=== PATIENT | female | born 1990 | race Two or more races ===

== ENCOUNTER 2023-08-10 14:29 | Observation (INO) | payer MEDICAID ==
[~2023-08-10] VITALS: Ht 157.5 cm; Wt 77.1 kg
[2023-08-10] MEDS: BETAMETHASONE ACET (30mg/5ml) 5ml Vial 6mg/ml IM ONE (15:02)
[2023-08-10] MEDS ORDERED: PREN-96 PO (16:01)
[2023-08-10 16:11] LABS: Urine Bacteria MANY /hpf (None Seen); Urine Blood Negative /uL (Negative); Urine Clarity HAZY (Clear); Urine Color Yellow (Yellow); Urine Mucus FEW (None Seen); Urine Protein, UAD TRACE (Negative); Urine Specific Gravity 1.018 (1.001-1.035); Urine WBC 9 /hpf (0 - 5); Urine pH 6.5 (5.0-8.0)
[2023-08-10] MEDS ORDERED: NITR-87 PO (16:49)
== END 2023-08-10 15:43 | disposition home or self-care (01) ==
LOC: LDRP 14:29 → UNDOADMOB 14:29 → LDRP 14:35
PROVIDERS: ADMIT Obstetrics & Gynecology; ATTEND Obstetrics & Gynecology
DX: O60.03 Preterm labor without delivery, third trimester (principal); O23.43 Unspecified infection of urinary tract in pregnancy, third trimester; Z91.040 Latex allergy status; Z3A.33 33 weeks gestation of pregnancy
CPT/HCPCS: 59025; 81001; 81002; 87086; 96372; G0378; 87088; 87186

== ENCOUNTER 2023-08-11 02:30 | Observation (INO) | payer MEDICAID ==
[~2023-08-11 02:30] MED LIST: NITR-87 PO; PREN-96 PO
== END 2023-08-11 03:32 | disposition home or self-care (01) ==
LOC: LDRP 02:30
PROVIDERS: ADMIT Obstetrics & Gynecology; ATTEND Obstetrics & Gynecology
DX: O23.43 Unspecified infection of urinary tract in pregnancy, third trimester (principal); O60.03 Preterm labor without delivery, third trimester; Z91.040 Latex allergy status; Z3A.33 33 weeks gestation of pregnancy
CPT/HCPCS: 59025; 81002; 94760; G0378

== ENCOUNTER 2023-08-17 08:26 | Observation (INO) | payer MEDICAID | END 2023-08-17 09:30 | disposition home or self-care (01) | LOC: LDRP 08:26 → UNDOADMOB 08:26 → LDRP 08:40 | PROVIDERS: ADMIT Obstetrics & Gynecology; ATTEND Obstetrics & Gynecology | DX: O60.03 Preterm labor without delivery, third trimester (principal); Z3A.34 34 weeks gestation of pregnancy; Z91.040 Latex allergy status | CPT/HCPCS: 59025; 81002; 94760; G0378 ==

== ENCOUNTER 2023-09-18 08:10 | Observation (INO) | payer MEDICAID ==
[2023-09-19] MEDS ORDERED: IBUP-1456 PO (07:07)
[2023-09-19] MEDS ORDERED: HYDR-4902 PO (07:07)
[2023-09-19] MEDS ORDERED: DOCU-94 PO (07:07)
== END 2023-09-18 09:52 | disposition home or self-care (01) ==
LOC: LDRP 08:10
PROVIDERS: ADMIT Obstetrics & Gynecology; ATTEND Obstetrics & Gynecology
DX: O75.9 Complication of labor and delivery, unspecified (principal); Z3A.38 38 weeks gestation of pregnancy; Z91.040 Latex allergy status
CPT/HCPCS: 59025; 81002; 94760; G0378

== ENCOUNTER 2023-09-19 05:04 | Inpatient (IN) | payer MEDICAID ==
[2023-09-18 10:02] LABS: Basophils # (auto) 0 10 ^3/uL (0-0.2); Basophils % (auto) 0.4 % (0.0-2.0); Eosinophils # (auto) 0 10 ^3/uL (0-0.8); Eosinophils % (auto) 0.2 % (0.0-7.0); Hematocrit 33.6 % (36.0-46.0); Hemoglobin 11.2 g/dL (12.2-16.2); Lymphocytes # (auto) 1.7 10 ^3/uL (0.4-5.4); Lymphocytes % (auto) 24.2 % (10.0-50.0); Mean Corpuscular Hemoglobin 30.1 pg (28.0-32.0); Mean Corpuscular Hgb Conc. 33.3 g/dL (32.0-36.0); Mean Corpuscular Volume 90.6 fL (80.0-100.0); Monocytes # (auto) 0.4 10 ^3/uL (0-1.3); Monocytes % (auto) 5.5 % (0.0-12.0); Neutrophils # (auto) 4.8 10 ^3/uL (1.6-8.6); Neutrophils % (auto) 69.7 % (37.0-80.0); Nucleated Red Blood Cells % 0.1 %; Red Blood Cells 3.71 10^6/uL (4.0-5.20); Red Cell Distribution Width 13.7 % (11.8-14.3); White Blood Cell 6.9 10^3/uL (4.4-10.8)
[2023-09-18 10:08] LABS: INR 0.94 (0.9-1.15); Partial Thromboplastin Time 24.2 SEC (24.5-34.5)
[2023-09-18 10:13] LABS: Alkaline Phosphatase 147 U/L (46-116); Aspartate Aminotransferase 21 U/L (13-40); Bilirubin, Total 0.5 mg/dL (0.2-1.0); Calcium 8.7 mg/dL (8.5-10.1); Chloride 106 mmol/L (98-107); Glucose 72 mg/dL (74-106); Sodium 137 mmol/L (136-145)
[2023-09-18 10:34] LABS: Alanine Aminotransferase < 9 U/L (7-40)
[2023-09-18 10:35] LABS: Albumin 3.5 g/dL (3.2-4.8); Anion Gap 8 (5-15); Carbon Dioxide 23 mmol/L (20-30)
[2023-09-18 10:36] LABS: BUN/Creatinine Ratio 12.9 (10.0-20.0); Blood Urea Nitrogen 8 mg/dL (9-23)
[2023-09-18 11:29] LABS: Urine Bacteria FEW /hpf (None Seen); Urine Blood Negative /uL (Negative); Urine Clarity Hazy (Clear); Urine Color Light-Yellow (Yellow); Urine Protein, UAD Negative (Negative); Urine Specific Gravity 1.014 (1.001-1.035); Urine Urobilinogen Normal (Negative); Urine WBC 5 /hpf (0 - 5)
[2023-09-18 11:38] LABS: Amphetamine Screen, Urine Neg (NEGATIVE); Barbiturate Scree,Urine Neg (NEGATIVE); Benzodiazephine Screen, Urine Neg (NEGATIVE); Cocaine Screen, Urine Neg (NEGATIVE); Opiate Scree,Urine Neg (NEGATIVE); Phencyclidine Screen, Urine Neg (NEGATIVE)
[2023-09-18 11:39] LABS: Cannabinoid Screen, Urine Neg (NEGATIVE)
[2023-09-19] VITALS (16 sets, daily range): BP systolic 95–115; BP diastolic 52–75; PULSE 62–85; RESP 16–18; TEMP 97.6–98.2; O2SAT 95–100
[~2023-09-19] VITALS: Ht 162.6 cm; Wt 62.1 kg
[2023-09-19] MEDS: LACTATED RINGER'S 1,000 ML IV ONE (06:23)
[2023-09-19] MEDS ORDERED: MORPHINE SULF PF 5 MG/10 ML VIAL ONE (06:58)
[2023-09-19] MEDS ORDERED: IBUP-1456 PO (07:07)
[2023-09-19] MEDS ORDERED: DOCU-94 PO (07:07)
[2023-09-19] MEDS ORDERED: HYDR-4902 PO (07:07)
[2023-09-19] MEDS ORDERED: ceFAZolin 1GM/50ML 50 ML IV SCH (07:15)
[2023-09-19] MEDS: GUM (CHEWING) 1 GUM CHEW CHEW ONE (07:15)
[2023-09-19] MEDS ORDERED: oxyTOCIN 10 UNIT/ML 10ML VIAL ONE (07:19)
[2023-09-19] MEDS ORDERED: ePHEDrine SULFATE 50 MG/ML AMP ONE (07:19)
[2023-09-19] MEDS ORDERED: PHENYLEPHRINE HCL 10 MG/ML VL IV ONE (07:20)
[2023-09-19] MEDS ORDERED: PHENYLEPHRINE HCL 10 MG/ML VL ONE (07:21)
[2023-09-19] MEDS ORDERED: KETOROLAC TROMETH 30 MG/ML 1ML VIAL IV PRN (08:30)
[2023-09-19] MEDS ORDERED: ONDANSETRON HCL 4 MG/2 ML VIAL IV PRN (08:30)
[2023-09-19] MEDS ORDERED: MEPERIDINE HCL (25 MG/ML) 1ML VIAL IV PRN (08:30)
[2023-09-19] MEDS ORDERED: DexAMETHasone SOD PHOS 10MG/1ML VIAL INJ IV PRN (08:30)
[2023-09-19] MEDS ORDERED: HYDROmorphone HCL 2 MG/ML VL/or syr IV PRN ×2 (08:30)
[2023-09-19] MEDS: NALBUPHINE HCL 10 MG/1ml INJECTION SUBCUT ONE (08:30)
[2023-09-19] MEDS ORDERED: NALOXONE HCL 0.4 MG/ML VIAL IV PRN (08:30)
[2023-09-19] MEDS: ceFAZolin 2 GM/D5W50ml 50 ML IV ONE (08:50)
[2023-09-19] MEDS: LACT. RINGERS/OXYTOCIN 20UNITS 1,000 ML IV ONE (09:04)
[2023-09-19] MEDS: ONDANSETRON HCL 4 MG/2 ML VIAL IV PRN (09:06)
[2023-09-19] MEDS: diphenhdrAMINE HCL 50 MG/1 ML VL IV PRN (09:06)
[2023-09-19] MEDS: LACTATED RINGER'S 1,000 ML IV SCH (09:16)
[2023-09-19] MEDS: ACETAMINOPHEN IV 1000 MG/100ML (10MG/ML) IV PRN ×2 (11:47→22:18)
[2023-09-19] MEDS: ceFAZolin 1GM/50ML 50 ML IV SCH (15:24)
[2023-09-19] MEDS: MORPHINE SULFATE 4 MG/ML SYR/VIAL IV PRN (20:01)
[2023-09-19 21:25] LABS: Basophils # (auto) 0 10 ^3/uL (0-0.2); Basophils % (auto) 0.4 % (0.0-2.0); Eosinophils # (auto) 0 10 ^3/uL (0-0.8); Eosinophils % (auto) 0.1 % (0.0-7.0); Hematocrit 34.2 % (36.0-46.0); Hemoglobin 11.2 g/dL (12.2-16.2); Lymphocytes # (auto) 1.5 10 ^3/uL (0.4-5.4); Mean Corpuscular Hemoglobin 29.8 pg (28.0-32.0); Mean Corpuscular Hgb Conc. 32.7 g/dL (32.0-36.0); Mean Corpuscular Volume 91.3 fL (80.0-100.0); Monocytes # (auto) 0.6 10 ^3/uL (0-1.3); Monocytes % (auto) 4.9 % (0.0-12.0); Neutrophils # (auto) 9.2 10 ^3/uL (1.6-8.6); Neutrophils % (auto) 81.6 % (37.0-80.0); Red Blood Cells 3.75 10^6/uL (4.0-5.20); Red Cell Distribution Width 13.7 % (11.8-14.3); White Blood Cell 11.3 10^3/uL (4.4-10.8)
[2023-09-20] VITALS (14 sets, daily range): BP systolic 91–120; BP diastolic 50–74; PULSE 64–88; RESP 16–20; TEMP 98–98.7; O2SAT 94–100
[2023-09-20] MEDS: ONDANSETRON HCL 4 MG/2 ML VIAL IV ONE (06:00)
[2023-09-20] MEDS ORDERED: BISACODYL 10 MG RECT SUPP PR PRN (07:00)
[2023-09-20] MEDS ORDERED: HYDROcodone-ACET 5/325MG TAB PO PRN (07:00)
[2023-09-20] MEDS: IBUPROFEN 800 MG TAB PO PRN (07:22)
[2023-09-20] MEDS: HYDROcodone-ACET 5/325MG TAB PO PRN (07:23)
[2023-09-20 08:30] LABS: Basophils # (auto) 0 10 ^3/uL (0-0.2); Basophils % (auto) 0.3 % (0.0-2.0); Eosinophils # (auto) 0 10 ^3/uL (0-0.8); Eosinophils % (auto) 0.1 % (0.0-7.0); Hematocrit 34.1 % (36.0-46.0); Hemoglobin 11.3 g/dL (12.2-16.2); Lymphocytes # (auto) 1.1 10 ^3/uL (0.4-5.4); Mean Corpuscular Hemoglobin 30.2 pg (28.0-32.0); Mean Corpuscular Hgb Conc. 33.2 g/dL (32.0-36.0); Mean Corpuscular Volume 90.7 fL (80.0-100.0); Monocytes # (auto) 0.5 10 ^3/uL (0-1.3); Monocytes % (auto) 5.7 % (0.0-12.0); Neutrophils # (auto) 7.7 10 ^3/uL (1.6-8.6); Neutrophils % (auto) 81.9 % (37.0-80.0); Red Blood Cells 3.76 10^6/uL (4.0-5.20); White Blood Cell 9.4 10^3/uL (4.4-10.8)
[2023-09-20] MEDS ORDERED: DOCUSATE SOD 100 MG CAP PO SCH ×3 (10:00→22:00)
[2023-09-20] MEDS ORDERED: DOCUSATE CALCIUM 240 MG CAP PO SCH ×2 (10:00→11:00)
[2023-09-20] MEDS: SIMETHICONE 80 MG CHEWABLE TABLET PO SCH (12:34)
[2023-09-20] MEDS: DOCUSATE SOD 100 MG CAP PO SCH (12:34)
[2023-09-20] MEDS: DOCUSATE CALCIUM 240 MG CAP PO SCH (12:38)
[2023-09-20 19:06] LABS: Chlamydia Trachomatis, NAA Negative (Negative); Neisseria gonorrhoeae, NAA Negative (Negative)
[2023-09-20] MEDS: KETOROLAC TROMETH 30 MG/ML 1ML VIAL IM PRN (22:41)
[2023-09-21 03:06] LABS: Rubella Antibodies, IgG 1.56 index (Immune >0.99)
[2023-09-21 03:30] VITALS: BP 92/58; PULSE 64; RESP 14; TEMP 98.1; O2SAT 98
[2023-09-21 05:07] LABS: RPR Non Reactive (Non Reactive)
[2023-09-21 07:00] VITALS: BP 98/58; PULSE 67; RESP 14; TEMP 98.4; O2SAT 98
[2023-09-21] MEDS ORDERED: DOCUSATE CALCIUM 240 MG CAP PO SCH (10:00)
[2023-09-21 11:00] VITALS: BP 102/63; PULSE 69; RESP 14; TEMP 97.9; O2SAT 100
== END 2023-09-21 14:40 | disposition home or self-care (01) | DRG 540 ==
LOC: UNDOADMIN 05:04 → LDRP 05:04
PROVIDERS: ADMIT Obstetrics & Gynecology; ATTEND Obstetrics & Gynecology
PROC: 10D00Z1 Extraction of Products of Conception, Low, Open Approach (ICD-10-PCS; principal; 2023-09-19 07:09)
DX: O34.211 Maternal care for low transverse scar from previous cesarean delivery (principal); Z37.0 Single live birth; Z3A.39 39 weeks gestation of pregnancy
CPT/HCPCS: 36415; 59025; 80053; 80307; 81001; 85025; 85610; 85730; 86592; 86703; 86762; 86803; 86850; 86900; 86901; 87340; 94760; 94762; 96360; 96361; 96365; 96374; 96375; G0378; J0131; J1885; J2405; J2590

== ENCOUNTER 2024-12-24 04:54 | Observation (INO) | payer MEDICAID ==
[~2024-12-24 04:54] MED LIST changes: +DOCU-94 PO; +HYDR-4902 PO; +IBUP-1456 PO; -NITR-87 PO
--- NOTE | 2024-12-24 07:10 | DVH ---
INDICATION: ABD PAIN/BACK PAIN TECHNIQUE: Multiple real-time sonographic images of the abdomen were obtained. COMPARISON: US ABDOMEN COMPLETE SONOGRAM on DOS: 08/22/23 FINDINGS: Liver is homogenous in echogenicity. The liver measures 14.3 cm. No intrahepatic biliary ductal dilatation is noted. The gallbladder wall measures 0.2 cm and is unremarkable. No gallstones or gallbladder sludge. No pericholecystic fluid or edema. The common duct measures 0.4 cm and is unremarkable. The right kidney measures 10.9 cm. Mild hydronephrosis. The left kidney measures 10.8 cm. No hydronep hrosis. The spleen measures 9.4 cm, within normal limits. The echogenicity is within normal limits. The pancreas is not well visualized due to obscuration from bowel gas. The visualized portions of the IVC and aorta are grossly unremarkable. IMPRESSION: Mild right hydronephrosis.
--- NOTE | 2024-12-24 07:12 | DVH ---
LIMITED OB ULTRASOUND > 14 WKS: HISTORY: ABD PAIN TECHNIQUE: Multiple real-time grayscale images of the gravid uterus with duplex Doppler color flow an d M-mode spectral analysis. TRANSDUCER: Transabdominal COMPARISON: US OBSTERICAL LIMITED on DOS: 08/22/23, US BIOPHYSICAL PROFILE on DOS: 08/09/23 FINDINGS /impression: heart rate 152 beats per minute JAMES 13.7 cm Cervix is closed and measures 3.5 cm Cephalic Presentation Anterior Placenta without previa or abruption. Possible nuchal cord x2.
[2024-12-24] MEDS: ONDANSETRON HCL 4 MG/2 ML VIAL IM ONE (07:31)
[2024-12-24 07:32] VITALS: BP 92/63; PULSE 82; RESP 18
[2024-12-24] MEDS: MORPHINE SULFATE 4 MG/ML SYR/VIAL IM ONE (07:32)
[2024-12-24] MEDS: LACTATED RINGER'S 1,000 ML IV ONE (07:34)
--- NOTE | 2024-12-24 07:36 | DVHDS2 ---
Physician Discharge Progress N Final Diagnosis: 31 WKS ABD PAIN Other Interventions Other Interventions NST REACTIVE REVIWEDJANO Condition on Discharge: Good Disposition: Home Discharge Instructions: Diet: Regular Activity: No Restrictions, As Tolerated Medications: NA Follow Up Care: Specialist: 3D Discharge Statement: "Patient was advised to return to the ER or call 911 if any headaches, dizziness, shortness of breath, chest pain, abdominal pain, bleeding, fevers, or worsening of medical condition. Patient was counseled about treatment plan, medications, possible side effects, patientverbalized understanding. All questions were answered to the best of my ability. This discharge took greater then 30 minutes in planning, reviewing documentation, counseling the patient, and discussing with other team members." Visit Coding OBGYN Date of Service: Dec 24, 2024 Billing Provider: VERONICA OCHOA DO MEDICAL SOCIAL CONSULTANT Common Visit Codes: [id number] INP/OBS CARE (HIGH) MEDICAL SOCIAL CONSULTANT Procedure Codes: 18460-54- NON-STRESS TEST VERONICA OCHOA DO Dec 24, 2024 07:36
[2024-12-24 08:17] LABS: Urine Protein, UAD 1+ (Negative)
== END 2024-12-24 10:22 | disposition home or self-care (01) ==
LOC: LDRP 04:54
PROVIDERS: ADMIT Obstetrics & Gynecology; ATTEND Obstetrics & Gynecology
DX: O26.893 Other specified pregnancy related conditions, third trimester (principal); R10.9 Unspecified abdominal pain; Z3A.31 31 weeks gestation of pregnancy; Z98.890 Other specified postprocedural states; Z79.899 Other long term (current) drug therapy
CPT/HCPCS: 59025; 76700; 76815; 81002; 81003; 87086; 96360; 96361; 96372; G0378; J2270; J2405

== ENCOUNTER 2025-01-19 10:55 | Observation (INO) | payer MEDICAID ==
--- NOTE | 2025-01-19 11:43 | DVH ---
BIOPHYSICAL PROFILE HISTORY: PTL TECHNIQUE: Multiple transabdominal real-time grayscale sonographic images through the gravid uterus of the fetus with duplex Doppler color flow and M-mode spectral analysis FINDINGS: BIOPHYSICAL PROFILE: breathing score: 2 movement score: 2 tone score: 2 Quantitative JAMES score: 2 (JAMES: 11 Cm.) Total score: 8 The cervix was not seen Single live fetus in cephalic presentation. heart rate 180 beats per minute. Grade II anterior placenta without previa or abruption Biophysical profile score 8/8 . IMPRESSION: Biophysical profile score: 8/8
[2025-01-19] MEDS ORDERED: CEPH250C PO (11:57)
--- NOTE | 2025-01-24 22:54 | DVHDS2 ---
Physician Discharge Progress N Final Diagnosis: hydronephrosis,back pain 34 wks Operations or Procedures: Operations or Procedures nst reactive reviwed,sono Condition on Discharge: Good Disposition: Home Discharge Instructions: Diet: Regular Activity: No Restrictions, As Tolerated Medications: na Follow Up Care: Specialist: 3d Discharge Statement: "Patient was advised to return to the ER or call 911 if any headaches, dizziness, shortness of breath, chest pain, abdominal pain, bleeding, fevers, or worsening of medical condition. Patient was counseled about treatment plan, medications, possible side effects, patientverbalized understanding. All questions were answered to the best of my ability. This discharge took greater then 30 minutes in planning, reviewing documentation, counseling the patient, and discussing with other team members." Discharge Care Plan Instructions S/S of dehydration Visit Coding OBGYN Date of Service: Jan 19, 2025 Billing Provider: VERONICA OCHOA DO OVERHAULER BUS TRUCK Common Visit Codes: 06752-[id number] INP/OBS CARE (HIGH) OVERHAULER BUS TRUCK Procedure Codes: 69484-51- NON-STRESS TEST VERONICA OCHOA DO Jan 24, 2025 22:54
== END 2025-01-19 12:05 | disposition home or self-care (01) ==
LOC: LDRP 10:55 → UNDOADMOB 10:55 → LDRP 11:08
PROVIDERS: ADMIT Obstetrics & Gynecology; ATTEND Obstetrics & Gynecology
DX: O99.891 Other specified diseases and conditions complicating pregnancy (principal); N13.30 Unspecified hydronephrosis; M54.9 Dorsalgia, unspecified; Z3A.34 34 weeks gestation of pregnancy; Z98.890 Other specified postprocedural states
CPT/HCPCS: 59025; 76819; 81002; G0378

== ENCOUNTER 2025-01-27 07:53 | Observation (INO) | payer MEDICAID ==
[~2025-01-27 07:53] MED LIST changes: +CEPH250C PO
--- NOTE | 2025-01-27 09:34 | DVH ---
CLINICAL HISTORY: Hydronephrosis COMPARISON: US BIOPHYSICAL PROFILE on DOS: 01/19/25, US OBSTERICAL LIMITED on DOS: 12/24/24, US OBSTERIC AL LIMITED on DOS: 08/22/23 TECHNIQUE: biophysical profile was performed. Transabdominal sonographic images of the fetus we re obtained. FINDINGS: The fetus is in cephalic position. heart rate measures 129 BPM. Amniotic fluid index measures 8.7 cm. The placenta is anterior in position without evidence of previa or abruption visuali zed. Possible nuchal cord with the umbilical cord visualized at least partially wrapped around the fe elin neck. BPP profile is an overall score of 8/8, with 2/2 points for breathing, with at least one episode of breathing over a 30 second duration during a 30 minute observation, 2/2 points for m ovements, with 3 or more discrete body or limb movements, 2/2 points for tone, with one or more episodes of extremity extension with return to flexion, or opening and closing of hand, and 2/ 2 points for amniotic fluid, with at least 1 pocket of amniotic fluid that measures 2 cm in 2 perpend icular planes. IMPRESSION: 1. BPP score of 8/8. 2. Possible nuchal cord.
--- NOTE | 2025-01-28 09:26 | DVHDS2 ---
Physician Discharge Progress N Final Diagnosis: HYDRONEPHROSIS 36WKS Operations or Procedures: Operations or Procedures NST REACTIVE REVIWED,SONO Condition on Discharge: Good Disposition: Home Discharge Instructions: Diet: Regular Activity: No Restrictions, As Tolerated Medications: NA Follow Up Care: Specialist: 1W Discharge Statement: "Patient was advised to return to the ER or call 911 if any headaches, dizziness, shortness of breath, chest pain, abdominal pain, bleeding, fevers, or worsening of medical condition. Patient was counseled about treatment plan, medications, possible side effects, patientverbalized understanding. All questions were answered to the best of my ability. This discharge took greater then 30 minutes in planning, reviewing documentation, counseling the patient, and discussing with other team members." Visit Coding OBGYN Date of Service: Jan 27, 2025 Billing Provider: VERONICA OCHOA DO SYSTEMS PROGRAM MANAGER Common Visit Codes: 81013-FHPWNRM OBS CARE (HIGH) SYSTEMS PROGRAM MANAGER Procedure Codes: 57331-70- NON-STRESS TEST VERONICA OCHOA DO Jan 28, 2025 09:26
== END 2025-01-27 09:44 | disposition home or self-care (01) ==
LOC: LDRP 07:53
PROVIDERS: ADMIT Obstetrics & Gynecology; ATTEND Obstetrics & Gynecology
DX: O99.891 Other specified diseases and conditions complicating pregnancy (principal); N13.39 Other hydronephrosis; Z3A.36 36 weeks gestation of pregnancy; Z98.890 Other specified postprocedural states
CPT/HCPCS: 59025; 76819; 81002; 94760; G0378

== ENCOUNTER 2025-01-29 09:13 | Observation (INO) | payer MEDICAID ==
--- NOTE | 2025-01-29 10:26 | DVH ---
BIOPHYSICAL PROFILE HISTORY: low JAMES TECHNIQUE: Multiple transabdominal real-time grayscale sonographic images through the gravid uterus of the fetus with duplex Doppler color flow and M-mode spectral analysis FINDINGS: BIOPHYSICAL PROFILE: breathing score: 2 movement score: 2 tone score: 2 Quantitative JAMES score: 2 (JAMES: 10 Cm.) Total score: 8 The cervix was not seen Single live fetus in cephalic presentation. heart rate 116 beats per minute. Grade II anterior placenta without previa or abruption IMPRESSION: Biophysical profile score: 8/8
--- NOTE | 2025-01-30 05:51 | DVHDS2 ---
Discharge Summary Date of Admission Jan 29, 2025 at 09:13 Date of Discharge: Jan 29, 2025 Admitting Diagnosis Thirty-six weeks history of low JAMES and right hydro nephrosis. NST BPP performed no evidence of low JAMES reassuring heart tones NST reactive Wounds: None Brief Hx & Hospital Course: NST BPP performed reassuring Consults/Reason for consult None Operations or Procedures None Condition at Discharge: Good Final Diagnosis/Problems List 36+ week history of low JAMES and right ureteral hydronephrosis Discharge Disposition: Home Discharge Instruct/Medications Diet: Regular Activity: No Restrictions, As Tolerated Activity comment: Kick counts labor precautions Scheduled Cephalexin (Keflex Capsule), 2 CAP PO QID, (Reported) Docusate Sodium (Colace), 1 CAP PO BID Vit W/ Ferrous Fumara ( One Daily), 1 TAB PO DAILY, (Reported) Scheduled PRN Hydrocodone-Acetaminophen (Hydrocodone Bitartrate/AC 5-325 mg), 1 TAB PO Q6HPRN PRN Ibuprofen (Ibuprofen), 800 MG PO TID PRN Discharge Statement: "Patient was advised to return to the ER or call 911 if any headaches, dizziness, shortness of breath, chest pain, abdominal pain, bleeding, fevers, or worsening of medical condition. Patient was counseled about treatment plan, medications, possible side effects, patientverbalized understanding. All questions were answered to the best of my ability. This discharge took greater then 30 minutes in planning, reviewing documentation, counseling the patient, and discussing with other team members." ASSESSMENT ASSESSMENT Assessment Visit Coding OBGYN Date of Service: Jan 29, 2025 Billing Provider: PAZ IRENE DO RAILROAD WHEELS AND AXLE INSPECTOR Common Visit Codes: 37209-AQM/OBS SAME DATE (LOW), 82468-QFW/OBS SAME DATE (MOD), 54540-AUS/OBS SAME DATE (HIGH) RAILROAD WHEELS AND AXLE INSPECTOR Procedure Codes: 57522-92- NON-STRESS TEST PAZ IRENE DO Jan 30, 2025 05:51
== END 2025-01-29 10:45 | disposition home or self-care (01) ==
LOC: LDRP 09:13
PROVIDERS: ADMIT Obstetrics & Gynecology; ATTEND Obstetrics & Gynecology
DX: O42.913 Preterm premature rupture of membranes, unspecified as to length of time between rupture and onset of labor, third trimester (principal); O99.891 Other specified diseases and conditions complicating pregnancy; N13.30 Unspecified hydronephrosis; Z3A.36 36 weeks gestation of pregnancy; Z98.890 Other specified postprocedural states
CPT/HCPCS: 59025; 76819; 81002; G0378

== ENCOUNTER 2025-02-01 06:35 | Observation (INO) | payer MEDICAID ==
[~2025-02-01] VITALS: Ht 160 cm; Wt 59.9 kg
[2025-02-02 05:33] LABS: Vaginal Bacteria Many; Vaginal Clue Cells Rare; Vaginal Epithelial Cells Many; Vaginal Trichomonas Not Present
--- NOTE | 2025-02-02 05:35 | DVHDS2 ---
Physician Discharge Progress N Final Diagnosis: IUP 36w6d, pelvic pain BV Operations or Procedures: Operations or Procedures SUBJECTIVE Kate Woods is a 35 yo with IUP at 36w6d presenting for pelvic pain Patient states yesterday at 1030, she began feeling a sharp, continuous pain in her vagina. She did not have anyone to drive her at that time so she called an ambulance and they took her to [facility]. She states that they watched her for a couple hours, gave her tylenol, and sent her home. She has her discharge packet with her. Discharge packet shows d/c medications of monistat and metronidazole. When asked, patient states they also said something about bacteria. Denies feeling any contractions today, but states she felt some yesterday. Denies leaking fluid or vaginal bleeding. States positive movement. Denies dysuria or urinary frequency. Denies any vaginal itching or changes in discharge. PNC: good. with Dr Hargrove EDC: 02/24/25 Ob Hx: c/s x 3 Review of Systems: Neuro: No complaints Heart: No complaints Lungs: No complaints GI: No complaints : Denies dysuria, abnormal vaginal discharge, itching, or change in odor. States she has pelvic pain x 1 day as described above Skin: No complaints Extremities: No complaints OBJECTIVE VSS FHR: Baseline: 140 Variability: Moderate Accelerations: Present Decelerations: Absent Category: 1 UCs: none noted Neuro: A&O x4. No apparent distress. Affect appropriate Heart: Regular rate and rhythm Lungs: Clear bilaterally GI: Gravid. No tenderness : SSE discussed and performed with consent. Cervix closed. No bleeding noted in vagina or at os. Copious amounts of thin whitish vargas discharge noted with ad herence along vaginal wall Skin: Dry and intact. No rashes or lesions Extremities: Cap refill WNL. Wet [place]: positive WBC, rare clue cells noted ASSESSMENT 35 yo with IUP at 36w6d Not in labor Category 1 Tracing Vaginitis- Bacterial Vaginosis PLAN -Continue with appointments as scheduled. Next weekly NST/BPP on Monday 02/05 -Discussed vaginitis and ways to promote vaginal hygiene. Emphasized the importance of taking metronidazole as prescribed. Patient states she will pickling grader the prescription today, as she does have transportation available -Sent urine GC/CT. Lab send out. -Discussed term labor precautions and kick counts. Answered all patient questions and concerns. Patient verbalizes understanding. Other Interventions Other Interventions Wet [place] WBC- moderate RBC- few epithelial- many bacteria- many trich- not present yeast- none clue cells- rare Condition on Discharge: Good Disposition: Home Discharge Instructions: Diet: Regular Activity: No Restrictions, As Tolerated Medications: Metronidazole as previously prescribed by [facility] Follow Up Care: Specialist: follow-up with NST on Monday 02/05 Discharge Statement: "Patient was advised to return to the ER or call 911 if any headaches, dizziness, shortness of breath, chest pain, abdominal pain, bleeding, fevers, or worsening of medical condition. Patient was counseled about treatment plan, medications, possible side effects, patientverbalized understanding. All questions were answered to the best of my ability. This discharge took greater then 30 minutes in planning, reviewing documentation, counseling the patient, and discussing with other team members." Visit Coding OBGYN Date of Service: Feb 02, 2025 Billing Provider: SHANAE PETERS CNM RETAIL MANAGER IN TRAINING Common Visit Codes: 96063-[id number] INP/OBS CARE (HIGH) RETAIL MANAGER IN TRAINING Procedure Codes: 13618-09- NON-STRESS TEST SHANAE PETERS CNM Feb 02, 2025 05:35
== END 2025-02-02 05:57 | disposition home or self-care (01) ==
LOC: LDRP 02-02 04:24
PROVIDERS: ADMIT Obstetrics & Gynecology; ATTEND Obstetrics & Gynecology
DX: O26.893 Other specified pregnancy related conditions, third trimester (principal); R10.2 Pelvic and perineal pain; O23.593 Infection of other part of genital tract in pregnancy, third trimester; Z3A.36 36 weeks gestation of pregnancy; Z98.890 Other specified postprocedural states
CPT/HCPCS: 59025; 81002; 87210; 94760; G0378

== ENCOUNTER 2025-02-03 04:35 | Observation (INO) | payer MEDICAID ==
--- NOTE | 2025-02-05 15:07 | DVH ---
BIOPHYSICAL PROFILE HISTORY: LOW JAMES TECHNIQUE: Multiple real-time grayscale sonographic images through the gravid uterus of the fetus wi th duplex Doppler color flow. FINDINGS: BIOPHYSICAL PROFILE: breathing score: 2 movement score: 2 tone score: 2 Quantitative JAMES score: 2 Total score: 8 out of 8 Single live intrauterine . Cephalic lie. heart rate 138 beats per minute. Placenta anteriorly positioned. JAMES 9.8 cm. IMPRESSION: Biophysical profile score: 8 out of 8
--- NOTE | 2025-02-06 06:19 | DVHDS2 ---
Discharge Summary Date of Admission Feb 05, 2025 at 14:30 Date of Discharge: Feb 05, 2025 Admitting Diagnosis 37+ weeks here for evaluation NST performed reassuring heart tones Wounds: None Labs/Diagnostic Data: Laboratory Results Test 02/05/25 15:24 Brief Hx & Hospital Course: NST performed Consults/Reason for consult tones 37+ week Operations or Procedures None Condition at Discharge: Good Final Diagnosis/Problems List 37+ weeks reassuring heart tones discharge Discharge Disposition: Home Discharge Instruct/Medications Diet: Regular Activity: No Restrictions, As Tolerated Activity comment: Kick counts labor precautions Follow Up/Referral: As scheduled Medications: None Scheduled Cephalexin (Keflex Capsule), 2 CAP PO QID, (Reported) Docusate Sodium (Colace), 1 CAP PO BID Vit W/ Ferrous Fumara ( One Daily), 1 TAB PO DAILY, (Reported) Scheduled PRN Hydrocodone-Acetaminophen (Hydrocodone Bitartrate/AC 5-325 mg), 1 TAB PO Q6HPRN PRN Ibuprofen (Ibuprofen), 800 MG PO TID PRN Discharge Statement: "Patient was advised to return to the ER or call 911 if any headaches, dizziness, shortness of breath, chest pain, abdominal pain, bleeding, fevers, or worsening of medical condition. Patient was counseled about treatment plan, medications, possible side effects, patientverbalized understanding. All questions were answered to the best of my ability. This discharge took greater then 30 minutes in planning, reviewing documentation, counseling the patient, and discussing with other team members." ASSESSMENT ASSESSMENT Assessment Visit Coding OBGYN Date of Service: Feb 05, 2025 Billing Provider: PAZ IRENE DO OXYGEN PLANT OPERATOR Common Visit Codes: 39491-DAH/OBS SAME DATE (LOW), 07217-GIP/OBS SAME DATE (MOD), 96911-SOF/OBS SAME DATE (HIGH) OXYGEN PLANT OPERATOR Procedure Codes: 15449-77- NON-STRESS TEST PAZ IRENE DO Feb 06, 2025 06:18
[2025-02-07 06:07] LABS: Chlamydia Trachomatis, NAA Negative (Negative); Neisseria gonorrhoeae, NAA Negative (Negative)
== END 2025-02-05 15:57 | disposition home or self-care (01) ==
LOC: LDRP 02-05 14:13 → UNDOADMOB 02-05 14:13 → LDRP 02-05 14:30
PROVIDERS: ADMIT Obstetrics & Gynecology; ATTEND Obstetrics & Gynecology
DX: O23.03 Infections of kidney in pregnancy, third trimester (principal); Z3A.37 37 weeks gestation of pregnancy; Z98.890 Other specified postprocedural states
CPT/HCPCS: 59025; 76819; 81002; 87491; 87591; G0378

== ENCOUNTER 2025-02-12 14:06 | Observation (INO) | payer MEDICAID ==
--- NOTE | 2025-02-12 14:53 | DVH ---
BIOPHYSICAL PROFILE HISTORY: low james TECHNIQUE: Multiple transabdominal real-time grayscale sonographic images through the gravid uterus of the fetus with duplex Doppler color flow and M-mode spectral analysis FINDINGS: BIOPHYSICAL PROFILE: breathing score: 2 movement score: 2 tone score: 2 Quantitative JAMES score: 2 (JAMES: 11.7 Cm.) Total score: 8 The cervix not well visualized. Single live fetus in cephalic presentation. heart rate 126 beats per minute. Anterior placenta without previa or abruption IMPRESSION: Biophysical profile score: 8
[2025-02-14] MEDS ORDERED: IBUP-1456 PO (17:18)
== END 2025-02-12 15:12 | disposition home or self-care (01) ==
LOC: LDRP 14:06 → UNDOADMOB 14:06 → LDRP 14:11
PROVIDERS: ADMIT Obstetrics & Gynecology; ATTEND Obstetrics & Gynecology
DX: O42.92 Full-term premature rupture of membranes, unspecified as to length of time between rupture and onset of labor (principal); Z3A.38 38 weeks gestation of pregnancy; Z98.890 Other specified postprocedural states
CPT/HCPCS: 59025; 76819; 81002; 94760; G0378

== ENCOUNTER 2025-02-14 04:16 | Inpatient (IN) | payer MEDICAID ==
[2025-02-12 14:41] LABS: Hematocrit 33.3 % (36.0-46.0); Hemoglobin 11.4 g/dL (12.2-16.2); Mean Corpuscular Hemoglobin 30.9 pg (28.0-32.0); Mean Corpuscular Volume 89.9 fL (80.0-100.0); Nucleated Red Blood Cells % 0.1 %
[2025-02-12 14:52] LABS: Urine Protein, UAD Negative (Negative)
[2025-02-12 14:53] LABS: INR 0.95 (0.9-1.15); Partial Thromboplastin Time 26.1 SEC (24.5-34.5); Prothrombin Time 10.1 sec (9.3-11.8)
[2025-02-12 14:53] LABS: Amphetamine Screen, Urine Neg (NEGATIVE)
[2025-02-12 14:55] LABS: Barbiturate Scree,Urine Neg (NEGATIVE); Benzodiazephine Screen, Urine Neg (NEGATIVE); Cannabinoid Screen, Urine Neg (NEGATIVE); Cocaine Screen, Urine Neg (NEGATIVE); Opiate Scree,Urine Neg (NEGATIVE); Phencyclidine Screen, Urine Neg (NEGATIVE)
[2025-02-12 14:56] LABS: Alanine Aminotransferase 10 U/L (7-40); Anion Gap 13 (5-15); BUN/Creatinine Ratio 11.1 (10.0-20.0); Carbon Dioxide 21 mmol/L (20-31); Chloride 103 mmol/L (98-107); Sodium 137 mmol/L (136-145); Total Protein 6.1 g/dL (5.7-8.2)
[2025-02-12 14:57] LABS: Albumin 3.5 g/dL (3.2-4.8); Alkaline Phosphatase 162 U/L (46-116); Bilirubin, Total 0.3 mg/dL (0.2-1.0); Blood Urea Nitrogen 8 mg/dL (9-23); Calcium 8.2 mg/dL (8.7-10.4); Glucose 120 mg/dL (74-106); Potassium 3.5 mmol/L (3.5-5.1)
[~2025-02-14] VITALS: Ht 160 cm; Wt 57.6 kg
[2025-02-14] VITALS (19 sets, daily range): BP systolic 94–112; BP diastolic 48–67; PULSE 58–95; RESP 15–18; TEMP 97.6–97.8; O2SAT 97–100
[2025-02-14] MEDS: LACTATED RINGER'S 1,000 ML IV SCH (04:45)
--- NOTE | 2025-02-14 04:58 | DVHHP ---
ADMIT DATE: 02/14/2025 CHIEF COMPLAINT: Early labor, desires repeat section. HISTORY OF PRESENT ILLNESS: The patient is a 35-year-old 4, para 3 with EDC 02/24, estimated gestational age of 38 plus weeks, admitted for early labor. The patient had previous section x 3. She desires to have repeat section. Denies having any vaginal bleeding or rupture of membranes. PAST MEDICAL HISTORY: None. PAST SURGICAL HISTORY: x 3. SOCIAL HISTORY: None. FAMILY HISTORY: None. ALLERGIES: No known drug allergies. REVIEW OF SYSTEMS: Consistent with HPI. PHYSICAL EXAMINATION: VITAL SIGNS: Stable, afebrile. HEENT: Within normal limits. CARDIOVASCULAR: Regular rate and rhythm. LUNGS: Clear to auscultation. BREASTS: Symmetrical. No masses. ABDOMEN: Gravid. Positive heart. PELVIC: Cervix 1 cm, soft. Uterine contractions q.4-5. EXTREMITIES: No clubbing, cyanosis, or edema. IMPRESSION: * Intrauterine at 38 plus weeks in early labor. * Previous section x 3. * Desires repeat section. PLAN: For section. Informed consent obtained. Risks and complications of surgery including infection, bleeding, hematoma formation, injury to bowel or bladder, surrounding organ, possibility of DVT, pulmonary embolism, and risks of anesthesia were discussed with the patient. Options were reviewed. All questions were answered. The patient fully understands. She wishes to proceed with planned procedure. Kaylah Hargrove DO MZ/SAY TID: [id number] RECEIPT: [id number]
[2025-02-14] MEDS: LACTATED RINGER'S 1,000 ML IV ONE (05:48)
[2025-02-14] MEDS ORDERED: MORPHINE SULF PF 5 MG/10 ML VIAL ONE (06:47)
[2025-02-14] MEDS ORDERED: BUPIVACAINE/DEXTROSE MPF 0.75% 2 ML AMP IT ONE (06:47)
[2025-02-14] MEDS ORDERED: PHENYLEPHRINE HCL 10 MG/ML VL ONE (06:49)
[2025-02-14] MEDS ORDERED: IBUP-1456 PO ×2 (06:59→17:18)
[2025-02-14] MEDS ORDERED: HYDR-4072 PO (06:59)
[2025-02-14] MEDS ORDERED: DOCU-94 PO (06:59)
[2025-02-14] MEDS: LACT. RINGERS/OXYTOCIN 20UNITS 1,000 ML IV ONE (07:00)
[2025-02-14] MEDS ORDERED: ONDANSETRON HCL 4 MG/2 ML VIAL IV PRN ×4 (07:00→08:30)
[2025-02-14] MEDS ORDERED: ONDANSETRON HCL 4 MG/2 ML VIAL ONE (07:13)
[2025-02-14] MEDS: NALBUPHINE HCL 10 MG/1ml INJECTION SUBCUT ONE (07:45)
[2025-02-14] MEDS ORDERED: diphenhdrAMINE HCL 50 MG/1 ML VL IV PRN (07:45)
[2025-02-14] MEDS ORDERED: HYDROmorphone HCL 2 MG/ML VL/or syr IV PRN ×2 (07:45)
[2025-02-14] MEDS ORDERED: NALOXONE HCL 0.4 MG/ML VIAL IV PRN (07:45)
[2025-02-14] MEDS ORDERED: ACETAMINOPHEN IV 1000 MG/100ML (10MG/ML) IV PRN (07:45)
[2025-02-14] MEDS: ceFAZolin 1GM/50ML 50 ML IV SCH ×2 (08:23→14:50)
[2025-02-14] MEDS: ceFAZolin 2 GM/D5W50ml 50 ML IV ONE (08:28)
[2025-02-14] MEDS: ACETAMINOPHEN IV 1000 MG/100ML (10MG/ML) IV PRN (09:02)
--- NOTE | 2025-02-14 13:43 | DVHOP2 ---
Operative Report DATE OF OPERATION:02/14/25 PREOPERATIVE DIAGNOSES: [iup at 38wks in labor,desires rcs,previous csx3,refused btl POSTOPERATIVE DIAGNOSES: [same] OPERATION PERFORMED: Repeat Section FINDINGS: [b] . Apgars of [9] and [9]. Weight [good] crying tone. [clear] amniotic fluid. Placenta and three-vessel were intact. Normal tubes, ovaries, and uterus. Moderate scar tissue. SURGEON: Kaylah Ochoa D.O. EAR MOLD LABORATORY TECHNICIAN: central lab technician, gay]. ANESTHESIOLOGIST: Mauro meza ANESTHESIA: [Duramorph spinal, regional]. COMPLICATIONS: [none]. ESTIMATED BLOOD LOSS: [500] mL. BLOOD PRODUCTS USED: [none]. PROCEDURE IN DETAIL: The patient was taken to the operating room, placed in sitting position, and spinal was placed without difficulty. She was then prepped and draped in a sterile fashion. A low Pfannenstiel incision was made scapel. At this point, it was carried down through the rectus fascia, nicked in the midline, and carried laterally. The rectus muscles were in the midline. Peritoneum was identified and entered with sharp dissection. Vesicouterine peritoneum was taken off the lower uterine segment. A lower uterine transverse incision was made with a scalpel down the chorionic membranes, ruptured with hemostat. was in vertex position. One hand was placed in the lower uterine segment. Head was essentially delivered spontaneously. Nose and mouth were bulb suctioned. Shoulders and torso were delivered without difficulty. Again, pharynx, nose, and mouth were re-suctioned with vigorous crying tone. Cord was cut. The was handed off to the awaiting Respiratory. At this point, umbilical blood sample was taken. Placenta was removed. Uterus was exteriorized, cleared off all clots and debris, irrigated, and closed with a double layer of 0-Vicryl. The vesicouterine peritoneum was incorporated into this closure. We had complete hemostasis. EBL was [500] mL. The instrument, lap, and sponge count was correct x1. The uterus was placed back into the peritoneum. The peritoneal cavity was re-inspected and the lower uterine incision with good hemostasis. We closed the peritoneum with running continuous of 2-0 Vicryl. The Rectus Fascia was closed with 0-PDS, running continuous, looped-0. The skin was closed undermined, irrigated, and close with mery. CONDITION: The patient's and the 's condition is stable and but guarded. Visit Coding OBGYN Date of Service: Feb 14, 2025 Billing Provider: KAYLAH OCHOA DO TANK CALIBRATOR Common Visit Codes: 41329-EAGWCGB OBS CARE (HIGH) TANK CALIBRATOR Procedure Codes: 36537-[id number] DELIVERY ONLY KAYLAH OCHOA DO Feb 14, 2025 13:43
--- NOTE | 2025-02-14 13:47 | POSTOP ---
Post-Operative Note Post-Operative Note Preop Diagnosis iup at 38wks in labor,desires rcs,previous csx3 Postop Diagnosis: same Operation performed rcs Specimen baby boy,apgars 8-9-9,vx Anesthesia: Regional Anesthesiologist: nuygen Blood Loss(fluid mgmt) 500ml Surgeon Veronica Hargrove Jitney Driver elmer Romero na Complications & Mgmt none Date 02/14/25 Time 13:46 Visit Coding OBGYN Date of Service: Feb 14, 2025 Billing Provider: VERONICA HARGROVE DO EXTRACT OPERATOR Common Visit Codes: 67952-ATCKPKY OBS CARE (HIGH) EXTRACT OPERATOR Procedure Codes: 89455-A-[id number] DELIVERY ONLY, 31523-69- ASSIST @ C- SECTION VERONICA HARGROVE DO Feb 14, 2025 13:47
[2025-02-14] MEDS ORDERED: PREN-96 PO (17:18)
[2025-02-14] MEDS: KETOROLAC TROMETH 30 MG/ML 1ML VIAL IV PRN (19:23)
[2025-02-14 21:25] LABS: Hematocrit 35.1 % (36.0-46.0); Hemoglobin 11.8 g/dL (12.2-16.2); Mean Corpuscular Hemoglobin 30.5 pg (28.0-32.0); Mean Corpuscular Volume 90.4 fL (80.0-100.0); Nucleated Red Blood Cells % 0.0 %
[2025-02-15] VITALS (10 sets, daily range): BP systolic 89–107; BP diastolic 49–68; PULSE 60–80; RESP 14–20; TEMP 97.9–98.4; O2SAT 95–99
--- NOTE | 2025-02-15 00:17 | DVHPN2 ---
Progress Note Date Seen: Feb 15, 2025 Subjective S: bleeding is less, eating food without issues, denies lightheaded/dizziness, pain well controlled with medications, due to void, no flatus/BM yet, ambulating, . Denies [place]O/vision changes/RUQ pain. vital signs Vital Sign Date Time Temp Pulse Resp B/P (MAP) Pulse Ox O2 Delivery O2 Flow Rate FiO2 02/14/25 23:00 97.7 70 15 94/53 (67) 97 97.7 02/14/25 18:50 Room Air 02/14/25 08:09 0 98 Total Intake and Output 02/14/25 02/14/25 02/15/25 15:00 23:00 07:00 Output Total 1600 ml Balance -1600 ml medications Current Medications Medications Dose Ordered Sig/Negar Route Start Time Stop Time Status Last Admin Dose Admin Lactated Ringer's 1,000 ml @ 125 mls/hr Q8H IV 02/14/25 04:45 02/14/25 23:01 125 MLS/HR Ondansetron HCl 4 mg Q4HP PRN IV 02/14/25 07:00 Cefazolin Sodium 50 ml @ 100 mls/hr Q8H IV 02/14/25 07:00 02/14/25 23:29 Cancel Diphenhydramine HCl 25 mg Q4HP PRN IV 02/14/25 07:45 Ketorolac Tromethamine 30 mg Q6HP PRN IV 02/14/25 07:45 02/19/25 07:44 02/14/25 19:23 30 MG Cefazolin Sodium 50 ml @ 100 mls/hr Q8H IV 02/14/25 15:00 02/15/25 07:29 02/14/25 22:53 100 MLS/HR Ephedrine Sulfate 10 mg [id number] PRN IV 02/14/25 08:30 02/15/25 08:29 Acetaminophen 1,000 mg Q8HPRN PRN IV 02/14/25 08:30 02/15/25 08:29 02/14/25 16:25 1,000 MG Morphine Sulfate 2 mg Q2HPRN PRN IV 02/14/25 19:15 laboratory and microbiology Laboratory Tests 02/14/25 20:50 02/12/25 14:25 Test 02/12/25 14:25 Range/Units Serum Glucose 120 H 74-106 mg/dL Objective O: VSS Chest: heart sounds normal and lung sounds clear bilaterally Abd: soft, non-tender, fundus at U/firm/midline, active bowel sounds, no rebound or guarding Incision: sylke dressing open to air, clean/dry/intact with 3 drops of old blood spots Ext: Non-tender, No edema, 2+ BLE DTRs Lochia: minimal See lab results Problems(with codes): (1) S/P repeat low transverse Assessment/Plan A/P: 35yo now POD#1 s/p repeat -Continue with routine post-OP PP care Plan discussed with: Patient Visit Coding OBGYN Date of Service: Feb 15, 2025 Billing Provider: EMETERIO DELGADILLO CNM INSURANCE VERIFIER Common Visit Codes: [id number] INP/OBS CARE(HIGH) EMETERIO DELGADILLO CNM Feb 15, 2025 00:17
[2025-02-15] MEDS: SIMETHICONE 80 MG CHEWABLE TABLET PO ONE (03:55)
[2025-02-15] MEDS: MORPHINE SULFATE 4 MG/ML SYR/VIAL IV PRN (07:44)
[2025-02-15 08:18] LABS: Hematocrit 35.6 % (36.0-46.0); Hemoglobin 11.9 g/dL (12.2-16.2); Mean Corpuscular Hemoglobin 30.3 pg (28.0-32.0); Mean Corpuscular Volume 90.6 fL (80.0-100.0); Nucleated Red Blood Cells % 0.0 %
[2025-02-15] MEDS: DOCUSATE SOD 100 MG CAP PO SCH (10:33)
[2025-02-15] MEDS: SIMETHICONE 80 MG CHEWABLE TABLET PO SCH (12:03)
[2025-02-15] MEDS: HYDROcodone-ACET 10/325MG TAB PO PRN (12:04)
[2025-02-15] MEDS: IBUPROFEN 800 MG TAB PO PRN (15:26)
[2025-02-15] MEDS: HYDROcodone-ACET 5/325MG TAB PO PRN (20:54)
[2025-02-15] MEDS: ACETAMINOPHEN 325 MG TAB PO ONE (23:05)
--- NOTE | 2025-02-16 00:33 | DVHPN2 ---
Progress Note Date Seen: Feb 16, 2025 Subjective Kate is sitting in bed with baby swaddled in her arms. Partner on couch at bedside. Patient states she is still experiencing a lot of gas pain and wants more pain medication Subjective: -Lochia minimal -Regular diet well tolerated. -Ambulating and voiding well w/o feeling dizzy or lightheaded -No flatus or BM yet -Bottlefeeding without problem -Unsure if she wants to be discharged today because of the gas pain vital signs Vital Sign Date Time Temp Pulse Resp B/P (MAP) Pulse Ox O2 Delivery O2 Flow Rate FiO2 02/15/25 22:52 98.4 76 18 101/68 (79) 98 98.4 02/15/25 18:30 Room Air 02/14/25 08:09 0 98 medications Current Medications Medications Dose Ordered Sig/Negar Route Start Time Stop Time Status Last Admin Dose Admin Ondansetron HCl 4 mg Q4HP PRN IV 02/14/25 07:00 Cefazolin Sodium 50 ml @ 100 mls/hr Q8H IV 02/14/25 07:00 02/14/25 23:29 Cancel Diphenhydramine HCl 25 mg Q4HP PRN IV 02/14/25 07:45 Cancel Docusate Sodium 100 mg Q12HR PO 02/15/25 10:00 02/15/25 22:43 100 MG Dimethicone 80 mg QID PO 02/15/25 12:00 02/15/25 22:43 80 MG Ibuprofen 800 mg Q8HP PRN PO 02/15/25 09:30 02/15/25 15:26 800 MG Acetaminophen/ Hydrocodone Bitart 1 tab Q4HPRN PRN PO 02/15/25 09:30 02/15/25 20:54 1 TAB Acetaminophen/ Hydrocodone Bitart 1 tab Q4HPRN PRN PO 02/15/25 09:45 02/15/25 12:04 1 TAB laboratory and microbiology Laboratory Tests 02/15/25 06:48 02/12/25 14:25 Test 02/12/25 14:25 Range/Units Serum Glucose 120 H 74-106 mg/dL Objective Objective: -A&O x4. No apparent distress. Affect appropriate -Afebrile, VSS -Chest: heart and lung sounds normal. -Breasts: Nipples intact w/o cracks or soreness -Abdomen: normal BS, soft, non-tender, no rebound or guarding, fundus firm @ U- 1, -Lower abdominal incision site with dressing dry and intact. Previous blood spots noted. No expansion from yesterday. No edema, erythema or induration -Extremities: no edema or tenderness Problems(with codes): (1) S/P repeat low transverse Assessment/Plan Assessment: 35 yo now Post operative & ppd # 2 s/p Repeat Section, doing well. Blood Type: A+ Bottle feeding Rubella Immune Plan: -Discussed the risks/benefits of taking norco for pain and its impact on gas pain and bowel movements. If needed, patient encouraged to take norco. Patient states she does not want norco if it will make her more constipated. Ordered tylenol for patient. Continue pain management with oral medications, alternating tylenol and ibuprofen. -Increase fluid intake and fiber in diet to promote regular bowel movements, Laxative PRN. Patient also taking mylicon for gas and ambulating frequently. -Educated patient on self-care and warning signs to watch for, including PPH, PPD, infection, and pre-eclampsia -Continue routine care. Will check in with patient in 6-7 hours to determine if she has been able to pass gas Plan discussed with: Patient Visit Coding OBGYN Date of Service: Feb 16, 2025 Billing Provider: SHANAE PETERS CNM [employer]NALYST Common Visit Codes: [id number] INP/OBS CARE(MOD) SHANAE PETERS CNM Feb 16, 2025 00:33
[2025-02-16 02:41] VITALS: BP 104/65; PULSE 86; RESP 18; TEMP 98.2; O2SAT 98
[2025-02-16 07:00] VITALS: BP 87/62; PULSE 68; RESP 16; TEMP 97.9; O2SAT 98
[2025-02-16] MEDS: ACETAMINOPHEN 325 MG TAB PO PRN (08:28)
[2025-02-16 11:00] VITALS: BP 98/67; PULSE 91; RESP 20; TEMP 98.1; O2SAT 97
--- NOTE | 2025-02-16 14:11 | DVHPN2 ---
Chief Complaints Patient reports: No new complaints Nursing reports: No new complaints Objective Vitals Vital Signs Date Time Temp Pulse Resp B/P (MAP) Pulse Ox O2 Delivery O2 Flow Rate FiO2 02/16/25 11:00 98.1 91 20 98/67 (77) 97 98.1 02/16/25 07:00 Room Air 0.0 02/14/25 08:09 98 Medications Current Medications Medications (Trade) Dose Ordered Sig/Negar Route PRN Reason Start Time Stop Time Status Last Admin Acetaminophen (Tylenol Tablet) 650 mg Q4HP PRN PO MILD PAIN (1-3 PAIN SCALE) 02/16/25 08:00 02/16/25 08:28 Lungs: Normal Cardiovascular: Normal Abdominal: Soft Extremities: Normal Studies Laboratory Tests 02/15/25 06:48 02/12/25 14:25 Test 02/12/25 14:25 Range/Units Serum Glucose 120 H 74-106 mg/dL Ass/Plan Assessment s/p rcs Plan dc home fu next Visit Coding OBGYN Date of Service: Feb 16, 2025 Billing Provider: VERONICA OCHOA DO [employer] DES[employer] Common Visit Codes: 59819-RDM/OBS DISCH DAY >30MIN [employer] Procedure Codes: [id number] DELIVERY ONLY VERONICA OCHOA DO Feb 16, 2025 14:11
--- NOTE | 2025-02-16 14:13 | DVHDS2 ---
Obstetrics Discharge Summary Obstetrics Discharge Summary Date of Admission: Feb 14, 2025 Date of Discharge: Feb 16, 2025 Reason For Admission: Onset of Labor, Section (Repeat) Procedures: NST Intrapartum Procedures: (Low Cervical Transverse) Procedures: None Operative Complicat: None Discharge Diagnosis: Term -Delivered Discharge Information: Activity (Other), Diet (Routine), Medications (Name:), Instructions (Routine), Discharge to (Home), Discarge date (02-16) Visit Coding OBGYN Date of Service: Feb 16, 2025 Billing Provider: VERONICA OCHOA DO [employer] Common Visit Codes: 40716-HOLVERE OBS CARE (HIGH), 56008-QTD/OBS DISCH DAY >30MIN [employer] Procedure Codes: [id number] DELIVERY ONLY VERONICA OCHOA DO Feb 16, 2025 14:13
== END 2025-02-16 15:11 | disposition home or self-care (01) | DRG 540 ==
LOC: UNDOADMIN 04:16 → LDRP 04:16
PROVIDERS: ADMIT Obstetrics & Gynecology; ATTEND Obstetrics & Gynecology
PROC: 10D00Z1 Extraction of Products of Conception, Low, Open Approach (ICD-10-PCS; principal; 2025-02-14 06:59)
DX: O34.211 Maternal care for low transverse scar from previous cesarean delivery (principal); Z37.0 Single live birth; Z3A.38 38 weeks gestation of pregnancy
CPT/HCPCS: 36415; 59025; 80053; 80307; 81001; 81002; 85025; 85610; 85730; 86780; 86803; 86850; 86900; 86901; 94760; 94762; 96360; 96361; 96365; 96366; 96374; G0378; J0131; J0169; J1885; J2405; J2590